=== PATIENT | male | born 1980 | race Caucasian/White ===

== ENCOUNTER 2018-12-18 08:29 | Emergency (ER) | payer OTHER, SELFPAY ==
[2018-12-18 08:39] VITALS: BP 125/82; PULSE 88; RESP 18; TEMP 36.5; O2SAT 99
--- NOTE | 2018-12-18 08:47 | ED_ITS ---
HPI - Back Pain/Injury General Chief Complaint: Back Pain/Injury Stated Complaint: Center back pain Time Seen by Provider: 12/18/18 08:32 Source: patient Mode of arrival: ambulatory Limitations: no limitations History of Present Illness HPI Narrative: Patient is a 38-year-old male who presents with left thoracic back pain ongoing for 2 days. He does have a history of some back pain he has got Diclofenac neck and cyclobenzaprine at home. He took both of those without any relief. It actually is in 1 particular spot and thoracic spine. He has no numbness or tingling. It hurts every time he moves or breathes. He has tried a heating pad last night nothing seemed to help. Complaint: back pain Onset (ago): day(s) (2) Severity: moderate Quality: sharp Radiation: none Relieving factors: none Related Data Allergies Allergy/AdvReac Type Severity Reaction Status Date / Time No Known Drug Allergies Allergy Verified 12/18/18 09:30 Review of Systems Review of Systems GENERAL: Denies chills,fever HEENT: Denies throat pain RESPIRATORY: Denies dyspnea, cough, wheezing CARDIOVASCULAR: Denies chest pain, palpitations GASTROINTESTINAL: Denies nausea, vomiting MUSCULOSKELETAL: Back pain SKIN: No rash, no laceration, no pruritus NEUROLOGIC: Denies weakness, dizziness, headache, numbness 8 point review of systems is negative except for those stated above and HPI [facility] Medical History Chronic back pain (Acute) Social History (Updated 12/18/18 @ 08:46 by Krystal Duff DO) Smoking Status: Current every day smoker alcohol intake: never substance use type: does not use Social History Smoking Status: Current every day smoker alcohol intake: never substance use type: does not use Exam Initial Vital Signs Initial Vital Signs: Vital Signs Temperature 97.7 F 12/18/18 08:39 Pulse Rate 88 12/18/18 08:39 Respiratory Rate 18 12/18/18 08:39 Blood Pressure 125/82 12/18/18 08:39 Pulse Oximetry 99 12/18/18 08:39 GENERAL: Well-appearing, well-nourished and in no acute distress. HEENT: Head atraumatic,EOMI, pupils reactive, face symmetric, moist mucous membranes CARDIOVASCULAR: Regular rate and rhythm without murmurs, rubs or gallops. RESPIRATORY: Breath sounds equal bilaterally, no wheezes rales or rhonchi. BACK: No vertebral tenderness he has rib pain around T6 of to the left side. Muscle spasm is felt there. Pain is reproducible with palpation EXTREMITIES: Normal range of motion, no clubbing or edema. Neurovascularly intact NEUROLOGICAL: Alert and oriented x4.Normal gait and speech. Cranial nerves II through XII grossly intact. SKIN: Warm, dry, no laceration, no petechiae, no rashes or lesions. Course Orders Ordered: Discontinued Medications Ketorolac Tromethamine (Toradol) 30 mg IM NOW ONE Stop: 12/18/18 08:43 Last Admin: 12/18/18 08:59 Dose: 30 mg Vital Signs - 8 hr 12/18/18 08:39 Temperature 97.7 F Pulse Rate 88 Respiratory Rate 18 Blood Pressure 125/82 Pulse Oximetry 99 Discharge Plan Departure Patient Disposition: Home Clinical Impression: Thoracic back pain Qualifiers: Chronicity: acute Back pain laterality: left Qualified Code(s): M54.6 - Pain in thoracic spine Discharge Date/Time: 12/18/18 09:21 Interventions: ED Discharge Assessment Last Done: 12/18/18 09:27 Instructions: DI for Thoracic Back Pain Activity Restrictions/Additional Instructions: *You have been diagnosed with thoracic back pain *What to do: This seems to be musculoskeletal. Possible rib. Increased movement as tolerated recommending heat. Id massaging *Continue to take medications as directed *Follow up with your primary care provider in 2-3 days *Return to ER if you should have increasing pain numbness tingling difficulty breathing or any new, worsening or concerning symptoms
[2018-12-18] MEDS: KETOROLAC 60 MG/2 ML VIAL 30 MG IM (08:59)
== END 2018-12-18 09:21 | disposition home or self-care (01) ==
PROVIDERS: Emergency Provider Emergency Medicine
DX: M54.6 Pain in thoracic spine (principal)
CPT/HCPCS: 96372; 99282; 99283; J1885

== ENCOUNTER 2020-02-26 14:12 | Emergency (ER) | payer OTHER, SELFPAY ==
--- NOTE | 2020-02-26 14:20 | DI.RAD.S_ITS ---
PROCEDURE: XR HAND LT MIN 3V INDICATIONS: accidental cut with saw TECHNIQUE: 3 views of the hand(s) acquired. COMPARISON: None. FINDINGS: Bones: No fractures or dislocations. Carpal bones are normally aligned. No suspicious bony lesions. Soft tissues: No suspicious soft tissue calcifications. There is either a calcification or a tiny radiopaque foreign body projecting to the thenar eminence. This is at a distance from the skin laceration, and is most likely unrelated. No other radiopaque foreign bodies. No soft tissue gas. IMPRESSION: 1. No evidence of acute bony abnormality of the left hand. 2. A tiny calcification versus radiopaque foreign body is at a distance from the skin laceration, and may be unrelated. Dictated by: Ellis Saravia M.D. on 02/26/2020 at 13:35 Approved by: Ellis Saravia M.D. on 02/26/2020 at 13:37
[2020-02-26 14:22] VITALS: BP 138/87; PULSE 76; RESP 16; TEMP 36.8; O2SAT 94; BMI 26.4
--- NOTE | 2020-02-26 14:26 | ED.UPPEXIN ---
HPI - Extremity Injury (Upper) General Chief Complaint: Extremity Injury, Upper Stated Complaint: Saw went through left palm Time Seen by Provider: 02/26/20 14:15 Source: patient Mode of arrival: Ambulatory Limitations: no limitations History of Present Illness HPI narrative: 39-year-old male daily smoker with noncontributory medical history presents with a chief complaint of an accidental injury with the soft to the palmar surface of his left hand. He suffered an irregular laceration with minimal bleeding and some pain. He does not think he can see bone. His tetanus is not current. He is otherwise well and free of complaint and denies other injury. MD complaint: injury to: left Onset (ago): hour(s) Other injuries: none Handedness: right Place: home Severity: moderate Relieving factors: rest Exacerbating factors: movement of extremity Context: laceration Associated symptoms: denies other symptoms Treatments prior to arrival: bandage Related Data Previous Rx's Medication Instructions Recorded cephalexin [Keflex] 500 mg PO QID 7 Days #28 cap 02/26/20 Allergies Allergy/AdvReac Type Severity Reaction Status Date / Time No Known Drug Allergies Allergy Verified 12/18/18 09:30 Review of Systems Constitutional Constitutional: Denies chills, Denies fatigue, Denies fever(s), Denies frequent falls, Denies lethargy and Denies weakness Eyes Eyes: Denies change in vision, Denies eye discharge, Denies irritation and Denies loss of vision ENT Ears, Nose, Mouth, and Throat: Denies change in voice, Denies dizziness, Denies neck pain, Denies sore throat and Denies throat swelling Cardiovascular Cardiovascular: Denies chest pain, Denies irregular heart rhythm, Denies lightheadedness, Denies palpitations, Denies dyspnea, Denies dyspnea on exertion and Denies orthopnea Respiratory Respiratory: Denies cough, Denies dyspnea, Denies dyspnea on exertion and Denies wheezing Gastrointestinal Gastrointestinal: Denies abdominal pain, Denies change in bowel habits, Denies diarrhea, Denies nausea and Denies vomiting Musculoskeletal Musculoskeletal: Denies neck pain and Denies numbness Integumentary/Breasts Skin/Breast: Denies pruritus, Denies erythema, Denies rash and Reports wounds Neurologic Neurologic: Denies behavioral changes, Denies confusion, Denies dizziness, Denies frequent falls, Denies loss of vision, Denies numbness and Denies weakness Psychiatric Psychiatric: Denies anxiety, Denies behavioral changes, Denies confusion, Denies depression, Denies homicidal ideation and Denies suicidal ideation Endocrine Endocrine: Denies fatigue, Denies flushing and Denies palpitations Hematologic/Lymphatic Hematologic/Lymphatic: Denies easy bruising Allergic/Immunologic Allergic/Immunologic: Denies urticaria, Denies throat swelling and Denies wheezing Patient History Medical History (Reviewed 02/26/20 @ 14: by Rome Vang DO) Chronic back pain (Acute) Social History (Reviewed 02/26/20 @ 14: by Rome Vang DO) Smoking Status: Current every day smoker alcohol intake: never substance use type: does not use Smoking Status: Current every day smoker alcohol intake frequency: 0-2 drinks per day Substance Use Type: does not use Exam Narrative Exam Narrative: GEN: AOx3 and in mild distress, GCS 15 EYES: Pupils are equal, round, and reactive to light and accommodation. Extraoccular muscles are intact bilaterally. There is no subconjunctival hemorrhage or exudate. CHEST: Lungs are clear to auscultation bilaterally and free of wheezes, rales, or rhonchi. Heart rate is regular rhythm, there are no murmurs, clicks, rubs, or gallops. There is no chest wall tenderness. ABD: Abdomen is soft and nontender. There is no guarding or rebound. Bowel sounds are normal in all 4 quadrants. There is no mass or organomegaly. EXT: 3 cm irregular laceration with exposure of subcu tissues along the base of left hand distal to the carpometacarpal junction. No active bleeding or obvious foreign body. Full painless ROM of all extremities with no loss of sensation or strength. SKIN: Warm, pink, and dry. No erythema or rash Initial Vital Signs Initial Vital Signs: Vital Signs Temperature 98.3 F 02/26/20 14:22 Pulse Rate 76 02/26/20 14:22 Respiratory Rate 16 02/26/20 14:22 Blood Pressure 138/87 02/26/20 14:22 Pulse Oximetry 94 02/26/20 14:22 Procedures Laceration Repair Laceration 1: Site: hand Side (If applicable): left Size (cm): 3 Description: stellate Depth: simple, single layer Local Anesthetic: lidocaine 1% and with bicarb Amount of anesthesia used (mL): 4 Skin layer closed with: nylon Size (cm): 4-0 Number of sutures: 8 Technique: simple, interrupted Course Orders Ordered: ED Orders 02/26/20 14:20 XR hand LT min 3V Stat Discontinued Medications Cefazolin Sodium (Keflex 250 Mg Prepack) 1 bottle MISC SEEINSTR ONE Stop: 02/26/20 14:32 Last Admin: 02/26/20 14:36 Dose: 1 bottle Documented by: LUL Diphtheria/Tetanus/Acell Pertussis (Adacel) 0.5 ml IM .ONCE ONE Stop: 02/26/20 14:21 Last Admin: 02/26/20 14:34 Dose: 0.5 ml Documented by: LUL Lidocaine/Sodium Bicarbonate (Buffered Lidocaine 10 Ml Syr) 10 ml INJ NOW ONE Stop: 02/26/20 14:21 Last Admin: 02/26/20 14:33 Dose: 10 ml Documented by: LUL Vital Signs Vital signs: Vital Signs - 8 hr 02/26/20 14:22 Temperature 98.3 F Pulse Rate 76 Respiratory Rate 16 Blood Pressure 138/87 Pulse Oximetry 94 MDM - Extremity Injury (Upper) Imaging Data Extremity x-ray #1: Radiologist's Impression: Sander Mckinney 39 M 1980 [place] [address] XRay Report Signed Patient: Sander Mckinney BMR#: [id number] : 1980Acct:[id number] Age/Sex: 39 / MDate of Service: 02/26/20 Loc: ED Accession Number: [id number] Procedure: XR hand LT min 3V Ordering Provider: Rome Vang D.O. PROCEDURE: XR HAND LT MIN 3V INDICATIONS: accidental cut with saw TECHNIQUE: 3 views of the hand(s) acquired. COMPARISON: None. FINDINGS: Bones: No fractures or dislocations. Carpal bones are normally aligned. No suspicious bony lesions. Soft tissues: No suspicious soft tissue calcifications. There is either a calcification or a tiny radiopaque foreign body projecting to the thenar eminence. This is at a distance from the skin laceration, and is most likely unrelated. No other radiopaque foreign bodies. No soft tissue gas. IMPRESSION: 1. No evidence of acute bony abnormality of the left hand. 2. A tiny calcification versus radiopaque foreign body is at a distance from the skin laceration, and may be unrelated. Dictated by: Ellis Saravia M.D. on 02/26/2020 at 13:35 Approved by: Ellis Saravia M.D. on 02/26/2020 at 13:37 Discharge Plan Departure Patient Disposition: Home Clinical Impression: Laceration of hand, left Qualifiers: Encounter type: initial encounter Foreign body presence: without foreign body Qualified Code(s): S61.412A - Laceration without foreign body of left hand, initial encounter Instructions: DI for Laceration Repair Activity Restrictions/Additional Instructions: Please keep the wound clean and dry to the best of your ability. Please monitor for signs of infection such as redness to the skin or increasing pain. Have the sutures removed by your doctor in about 7 days. If you are unable to get into your doctor, we would be happy to remove the sutures in that same timeframe. Prescriptions: New cephalexin [Keflex] 500 mg capsule 500 mg PO QID 7 Days Qty: 28 RF: 0
[2020-02-26] MEDS: LIDO 1%/SOD BICARB 8.4% (10ML) 10 ML SYRINGE INJ (14:33)
[2020-02-26] MEDS: TET,DIPH,PERTUSS(ACELL),VAC/PF 0.5 ML SYRINGE IM (14:34)
[2020-02-26] MEDS: cephALEXin 250 MG PREPACK 1 BOTTLE MISC (14:36)
== END 2020-02-26 15:11 | disposition home or self-care (01) ==
PROVIDERS: Emergency Provider Emergency Medicine
DX: S61.412A Laceration without foreign body of left hand, initial encounter (principal); W29.3XXA Contact with powered garden and outdoor hand tools and machinery, initial encounter; Z23 Encounter for immunization
CPT/HCPCS: 12002; 73130; 90471; 99283; 90715